=== PATIENT | female | born 1980 | race African-American/Black ===

== ENCOUNTER 2019-02-24 04:04 | Emergency (ER) | payer MEDICAID ==
[~2019-02-24] VITALS: Ht 154.9 cm; Wt 68.9 kg
--- NOTE | 2019-02-24 04:38 | NUR ---
HANDCUFFS MARGARET ON L WRIST NOTED
--- NOTE | 2019-02-24 04:38 | NUR ---
PT BIB EMS & [employer] FOR BIZARRE BEHAVIOR. PT WAS FOUND RUNNING AROUND THE STREET NAKED. PT PLACED ON MONITOR AND PULSE OX. NO ACUTE DISTRESS NOTED. PT ADMITS TO USING METH LAST NIGHT.
--- NOTE | 2019-02-24 04:46 | NUR ---
SHOT [employer]LE SHOOTER AT BEDSIDE FOR LAB COLLECTION.
[2019-02-24 04:52] LABS: BASOPHILS % (AUTO) 0.4 % (0.0-2.0); EOSINOPHILS % (AUTO) 0.1 % (0.0-6.0); HEMATOCRIT 37 % (33-45); HEMOGLOBIN 12.3 g/dL (11.5-14.8); LYMPHOCYTES # (AUTO) 0.8 /CMM (0.8-4.8); LYMPHOCYTES % (AUTO) 8.3 % (20.0-44.0); MEAN CORPUSCULAR HGB CONC 34 g/dl (31.0-36.0); MEAN CORPUSCULAR VOLUME 88 fL (82-100); MONOCYTES # (AUTO) 0.7 /CMM (0.1-1.30); MONOCYTES % (AUTO) 7.6 % (2.0-12.0); NEUTROPHILS # (AUTO) 8.3 /CMM (1.8-8.9); NEUTROPHILS % (AUTO) 83.6 % (43.0-81.0); PLATELET COUNT (AUTO) 350 /CMM (150-450); RED BLOOD CELL COUNT(AUTO) 4.15 MIL/uL (4.0-5.2); WHITE BLOOD COUNT (AUTO) 9.9 K/uL (4.3-11.0)
[2019-02-24 05:07] LABS: CALCIUM, SERUM 9.5 mg/dL (8.5-10.1); CARBON DIOXIDE 25 mmol/L (21-32); CHLORIDE 107 mmol/L (98-107); CREATININE 1.3 mg/dL (0.6-1.3); GLUCOSE 78 mg/dL (74-106); SODIUM SERUM 144 mmol/L (136-145); UREA NITROGEN, BLOOD 17 mg/dL (7-18)
[2019-02-24 05:17] LABS: APPEARANCE,URINE Clear (CLEAR); BILIRUBIN,URINE SMALL (NEGATIVE); BLOOD, URINE Trace-lysed Ery/uL (NEGATIVE); COLOR,URINE Yellow (YELLOW); KETONES,URINE 80 (NEGATIVE); LEUKOCYTE ESTERASE ,URINE Trace (NEGATIVE); NITRITE, URINE Negative (NEGATIVE); PROTEIN,URINE 100 mg/dl (NEGATIVE); UGLUCOSE Negative (NEGATIVE)
--- NOTE | 2019-02-24 05:17 | NUR ---
PT RESTING COMFORTABLY. NO ACUTE DISTRESS NOTED. EASILY AROUSED.
[2019-02-24 05:18] LABS: ALANINE AMINOTRANSFERASE 14 U/L (12-78); ALBUMIN 4.2 g/dL (3.4-5.0); ALCOHOL, BLOOD < 3 mg/dL (0-0); ALKALINE PHOSPHATASE 54 U/L (46-116); ASPARTATE AMINOTRANSFERASE 23 U/L (15-37); BILIRUBIN,DIRECT 0.2 mg/dL (0.0-0.2); BILIRUBIN,TOTAL 0.7 mg/dL (0.2-1.0)
[2019-02-24 05:19] LABS: SALICYLATE 1.1 mg/dL (2.8-20.0)
[2019-02-24 05:20] LABS: ACETAMINOPHEN 0 ug/ml (10-30)
[2019-02-24 05:45] LABS: BACTERIA,URINE Few /HPF (None Seen); RBC,URINE 0-2 /HPF (0-2); SQUAMOUS EPITHELIAL CELL,UR Few /HPF (None Seen)
--- NOTE | 2019-02-24 07:50 | NUR ---
CALLED FOR FOOD TRAY
--- NOTE | 2019-02-24 14:54 | NUR ---
Social service consult requested by ER for homelessness. Pt is a 38 year old female who was admitted to [facility] ER for behavioural. Pt was standing and gathering her belonging during assessment. Pt is ambulatory. Pt was not interested in engaging in SW assessment. Pt states "I'm leaving. 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 ARSALAN provided pt with the following referrals: [facility] [[facility]]; pick and shovel worker address: [address] [place] [address], [facility]: [address] [place] [address], and [facility]: [address] [facility] [address]. ARSALAN also provided pt with the following housing and health services referrals: [facility] [address] [place] [address] [place] [address]; , [facility] [address] [place] [address]; , and [facility] [address] [place] [address]; . [facility]eless Resources Directory and health and mental health clinic referrals were also provided. ARSALAN also provided pt the following substance abuse treatment program referrals: [facility] [address] [place] [address]; , [facility] [address] [place] [address]; , and [facility] [address] [facility] [place] [address]; . Pt denies suicidal and homicidal ideation. Pt signed the homeless waiver and it has been placed in her chart. Pt will require a TAP card upon discharge. No other services needed at this time. SW is available if needed.
--- NOTE | 2019-02-24 14:57 | NUR ---
Patient given written and verbal discharge instructions. Patient verbalizes understanding of instructions. Patient is ambulatory with steady gait. Refuses offer of care home placement. Patient given list of available shelters in surrounding area. Patient in proper clothing upon discharge, name band removed. All belongings returned.
[2019-02-24 14:59] VITALS: BP 108/54
== END 2019-02-24 14:57 | disposition home or self-care (01) ==
LOC: ER 04:07 → EDBD 04:07 → ER 14:57
DX: R45.851 Suicidal ideations (principal); F19.10 Other psychoactive substance abuse, uncomplicated
CPT/HCPCS: 36415; 80048; 80076; 80305; 80307; 80329; 81001; 85025; 87086; 99284; G0480; 81000-TC